=== PATIENT | male | born 1935 | race African-American/Black ===

== ENCOUNTER → 2020-07-13 | Outpatient (CLI) | payer OTHER ==
[~2020-07-13] MED LIST: ULTRAM 50MG TAB50 MG PO; VASOTEC20 MG OR
== END ==
LOC: SJCVC 14:00
PROVIDERS: ATTEND Internal Medicine
DX: R94.31 Abnormal electrocardiogram [ECG] [EKG] (principal); I44.0 Atrioventricular block, first degree; I45.2 Bifascicular block; I49.8 Other specified cardiac arrhythmias; R55 Syncope and collapse; E78.5 Hyperlipidemia, unspecified; Z79.82 Long term (current) use of aspirin; Z87.891 Personal history of nicotine dependence; Z72.89 Other problems related to lifestyle; Z88.2 Allergy status to sulfonamides; Z88.6 Allergy status to analgesic agent; Z79.899 Other long term (current) drug therapy